=== PATIENT | female | born 1975 | race Caucasian/White ===

== ENCOUNTER 2016-09-30 11:06 | Outpatient (CLI) | payer BC ==
--- NOTE | 2016-09-30 12:49 | DIAGNOSTIC IMAGING REPORT ---
PROCEDURE: XR THORACIC SPINE 2 VIEWS INDICATION: WORSENING LBP HX OF THORACLUMBAR SCOLIOSIS TECHNIQUE: Three views. COMPARISON: None. FINDINGS: Scoliosis. Osseous structures and disc spaces are normal. No evidence of an acute process or fracture. IMPRESSION: 1. Negative thoracic spine.
--- NOTE | 2016-09-30 12:52 | DIAGNOSTIC IMAGING REPORT ---
PROCEDURE: XR LUMBAR SPINE 2 OR 3 VIEWS INDICATION: LOWER BACK PX TECHNIQUE: Three views. COMPARISON: None. FINDINGS: Spondylosis L4-5. Dextroscoliosis. IMPRESSION: 1. L4-5 spondylosis. Dextroscoliosis.
== END 2016-09-30 23:00 ==
LOC: XR SRH 11:06
DX: M54.5 Low back pain (principal); M41.86 Other forms of scoliosis, lumbar region